=== PATIENT | male | born 1970 | race Caucasian/White ===

== ENCOUNTER 2020-07-11 15:31 | Emergency (ER) | payer BC, SELFPAY ==
--- OUTSIDE RECORDS SUMMARY | 2020-07-11 15:33 | XMS REPORT | Continuity of Care Document ---
:1970 Author Organization [facility] t Address [address] [place] [address] [address]. [address] [place] [address] Care Team Providers Name Role Phone Patrice LEPE Attending Clinician Problems This patient has no known problems. Allergies, Adverse Reactions, Alerts This patient has no known allergies or adverse reactions. Medications This patient has no known medications. Procedures This patient has no known procedures. Encounters Start End Encounter Admission Attending Care Care Encounter Source Date/Time Date/Time Type Type Clinicians Facility Department ID 2020-01-07 2020-01-07 Emergency Patrice [facility] [id number] 13:23:00 15:57:00 Arjun Tang [id number] Susan [id number] [place] [id number] Results This patient has no known results.
--- NOTE | 2020-07-11 16:17 | RAD REPORT ---
EXAM DESCRIPTION: CT - [id number] - 07/11/2020 3:59 pm CLINICAL HISTORY: Trauma, head and neck injury. PAIN COMPARISON: No comparisons TECHNIQUE: Axial 5 mm thick images of the head were obtained. Axial 2 mm thick images of the cervical spine were obtained with sagittal and coronal reconstruction images generated and reviewed. All CT scans are performed using dose optimization technique as appropriate and may include automated exposure control or mA/KV adjustment according to patient size. FINDINGS: CT HEAD WITHOUT CONTRAST: No acute hemorrhage, hydrocephalus or extra-axial collection is identified.No areas of brain edema or midline shift. The paranasal sinuses and mastoids are clear.The calvarium is intact. CT CERVICAL SPINE WITHOUT CONTRAST: No fracture or subluxation.No prevertebral soft tissues swelling is identified. IMPRESSION: No acute intracranial or cervical spine findings.
[2020-07-11] MEDS ORDERED: TETANUS & DIPHTHERIA TOX,ADULT 0.5 ML VIAL ONE (16:48)
[2020-07-11] MEDS ORDERED: DERMABOND SKIN ADHESIVE TOP ONE (17:19)
--- NOTE | 2020-07-11 17:29 | EDPHYS ---
Physician Documentation [facility] Name: Rei Reyna Age: 49 yrs Sex: Male : 1970 Arrival Date: 07/11/2020 Time: 15:32 Bed 25 Private MD: ED Physician Deborah Foss HPI: 07/11 17:53 This 49 yrs old Male presents to ER via Ambulatory with complaints of Head kb Injury Without LOC-Adult, Laceration - ear. 17:53 The patient or guardian reports injury, pain. The complaints affect the right ear and kb right temporal area. Context of injury: The problem was sustained outdoors, at work, resulted from a direct blow, tree limb. Onset: The symptoms/episode began/occurred just prior to arrival. Associated signs and symptoms: Loss of consciousness: This patient did not experience any loss of consciousness. Pertinent positives: dazed, injury. Severity of symptoms: At their worst the symptoms were moderate, in the emergency department the symptoms are unchanged. The patient has not experienced similar symptoms in the past. The patient has not recently seen a physician. 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 the limb was attached to a rope, something happened and the limb swung hitting him on the right side of his head. States he didn't remember everything that happened at first, but it's all coming back to him. Pt is A\T\Ox4 currently. No neuro deficits. Historical: - Allergies: 15:48 No Known Allergies; ca1 - Home Meds: 15:48 None [Active]; ca1 - PMHx: 15:48 None; ca1 - PSHx: 15:48 elbow surgery; ca1 - Immunization history: Last tetanus immunization: < 10 years ago. - Social history:: Smoking status: Patient/guardian denies using tobacco, the patient reports quitting approximately 2 years ago. ROS: 17:13 Constitutional: Negative for fever, chills, and weight loss, Eyes: Negative for injury, kb pain, redness, and discharge, Neck: Negative for injury, pain, and swelling, Cardiovascular: Negative for chest pain, palpitations, and edema, Respiratory: Negative for shortness of breath, cough, wheezing, and pleuritic chest pain, Abdomen/GI: Negative for abdominal pain, nausea, vomiting, diarrhea, and constipation, MS/Extremity: Negative for injury and deformity. 17:13 Skin: Positive for abrasion(s), laceration(s), swelling, of the right ear. 17:14 Skin: Positive for abrasion(s), of the right side of forehead and low back area. kb Exam: 17:14 Constitutional: This is a well developed, well nourished patient who is awake, alert, kb and in no acute distress. Eyes: Pupils equal round and reactive to light, extra-ocular motions intact. Lids and lashes normal. Conjunctiva and sclera are non-icteric and not injected. Cornea within normal limits. Periorbital areas with no swelling, redness, or edema. Neck: Trachea midline, no thyromegaly or masses palpated, and no cervical lymphadenopathy. Supple, full range of motion without nuchal rigidity, or vertebral point tenderness. No Meningismus. Chest/axilla: Normal chest wall appearance and motion. Cardiovascular: Regular rate and rhythm with a normal S1 and S2. No gallops, murmurs, or rubs. No pulse deficits. Respiratory: Respirations even and unlabored. No increased work of breathing, no retractions or nasal flaring. Abdomen/GI: Soft, non-tender. No distention Back: No spinal tenderness. No costovertebral tenderness. Full range of motion. MS/ Extremity: Pulses equal, no cyanosis. Neurovascular intact. Full, normal range of motion. Neuro: Awake and alert, GCS 15, oriented to person, place, time, and situation. Moves all extremities. Normal gait. 17:14 Head/face: Noted is no obvious of injury or deformity except abrasion(s), that are mild, that are moderate, of the right side of forehead and right ear, a laceration(s), that is superficial, 0.5 cm(s), of the pinna of right ear, swelling, that is mild, of the right ear, tenderness, that is moderate, of the right ear. 17:14 Eyes: Pupils: equal, round, and reactive to light and accomodation, Extraocular movements: intact throughout. 17:14 Skin: injury, abrasion(s), moderate sized abrasion noted, of the low back area. Vital Signs: 15:42 BP 145 / 103; Pulse 75; Resp 16 S; Temp 97.3; Pulse Ox 88% on R/A; Weight 99.79 kg (R); ca1 Height 5 ft. 8 in. (172.72 cm) (R); Pain 3/10; 16:49 BP 142 / 91; Pulse 62; Resp 16; Pulse Ox 100% on R/A; mh5 17:34 BP 133 / 88; Pulse 56; Resp 16; Pulse Ox 100% ; mh5 15:42 Body Mass Index 33.45 (99.79 kg, 172.72 cm) ca1 Olive Coma Score: 15:42 Eye Response: spontaneous(4). Verbal Response: oriented(5). Motor Response: obeys ca1 commands(6). Total: 15. 17:12 Eye Response: spontaneous(4). Verbal Response: oriented(5). Motor Response: obeys kb commands(6). Total: 15. 17:53 Eye Response: spontaneous(4). Verbal Response: oriented(5). Motor Response: obeys kb commands(6). Total: 15. Trauma Score (Adult): 15:42 Eye Response: spontaneous(1); Verbal Response: oriented(1); Motor Response: obeys ca1 commands(2); Systolic BP: > 89 mm Hg(4); Respiratory Rate: 10 to 29 per min(4); Olive Score: 15; Trauma Score: 12 MDM: 15:35 Patient medically screened. kb 17:12 Data reviewed: vital signs, nurses notes. Data reviewed: I have discussed the patient's kb presentation/case with the attending Emergency Department Physician;. Data interpreted: Pulse oximetry: on room air is 100 %. Interpretation: normal. Counseling: I had a detailed discussion with the patient and/or guardian regarding: the historical points, exam findings, and any diagnostic results supporting the discharge/admit diagnosis, radiology results, the need for outpatient follow up, a family practitioner, to return to the emergency department if symptoms worsen or persist or if there are any questions or concerns that arise at home. 07/11 15:42 Order name: CT Head C Spine; Complete Time: 16:19 kb 07/11 15:42 Order name: Wound Care; Complete Time: 16:45 kb 07/11 16:55 Order name: Dermabond; Complete Time: 17:02 kb Administered Medications: 16:36 Drug: Tetanus-Diphtheria Toxoid Adult 0.5 ml {Financial Institution President: [employer]. Exp: iw 09/18/2021. Lot #: [id number]. } Route: IM; Site: right deltoid; 17:00 Follow up: Response: No adverse reaction iw Disposition: 07/11/20 17:28 Discharged to Home. Impression: Concussion without loss of consciousness, Laceration without foreign body of right ear, Abrasion of right ear, Abrasion of other part of head, Abrasion of lower back and pelvis. - Condition is Stable. - Discharge Instructions: Laceration Care, Adult, [id number], Abrasion, [id number]-Bgar, Concussion, Adult, Ogsv-ye-Ferz. - Medication Reconciliation Form, Thank You Letter, Antibiotic Education, Prescription Opioid Use form. - Follow up: Private Physician; When: 2 - 3 days; Reason: Recheck today's complaints, Continuance of care, Re-evaluation by your physician. Follow up: Emergency Department; When: As needed; Reason: Worsening of condition. Addendum: 07/12/2020 18:44 Co-signature as Attending Physician, Deborah Foss MD. m a2 Signatures: Dispatcher [employer] EDMatilda Abdalla, ASSEMBLER MOTOR VEHICLE-C ASSEMBLER MOTOR VEHICLE-Ckb Shari Viera, KONSTANTIN RN Deborah Charles MD MD ma2 Radha Daugherty RN RN ca1 Corrections: (The following items were deleted from the chart) 07/11 17:39 17:28 07/11/2020 17:28 Discharged to Home. Impression: Concussion without loss of iw consciousness; Laceration without foreign body of right ear; Abrasion of right ear; Abrasion of other part of head; Abrasion of lower back and pelvis. Condition is Stable. Forms are Medication Reconciliation Form, Thank You Letter, Antibiotic Education, Prescription Opioid Use. Follow up: Private Physician; When: 2 - 3 days; Reason: Recheck today's complaints, Continuance of care, Re-evaluation by your physician. Follow up: Emergency Department; When: As needed; Reason: Worsening of condition. kb
--- NOTE | 2020-07-11 17:29 | ER ---
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 He almost blacked out and was confused and disoriented after. He is bleeding from back of R ear. Care prior to arrival: None. 15:42 Acuity: ULISES 2 ca1 15:42 Method Of Arrival: Ambulatory ca1 15:47 Coronavirus screen: Client denies travel out of the [place] in the last 14 days. At this ca1 time, the client does not indicate any symptoms associated with coronavirus-19. Ebola Screen: Patient negative for fever greater than or equal to 101.5 degrees Fahrenheit, and additional compatible Ebola Virus Disease symptoms Patient denies exposure to infectious person. Patient denies travel to an Ebola-affected area in the 21 days before illness onset. No symptoms or risks identified at this time. Initial Sepsis Screen: Does the patient meet any 2 criteria? No. Patient's initial sepsis screen is negative. Does the patient have a suspected source of infection? No. Patient's initial sepsis screen is negative. Risk Assessment: Do you want to hurt yourself or someone else? Patient reports no desire to harm self or others. Onset of symptoms was July 11, 2020. Triage Assessment: 17:30 General: Appears in no apparent distress. Behavior is calm, cooperative. iw Trauma Activation: Alert Physician: ED Physician; Name: ; Notified At: ; Arrived At: Physician: General Surgeon; Name: ; Notified At: ; Arrived At: Physician: Radiology; Name: ; Notified At: ; Arrived At: Physician: Respiratory; Name: ; Notified At: ; Arrived At: Physician: Lab; Name: ; Notified At: ; Arrived At: Historical: - Allergies: 15:48 No Known Allergies; ca1 - Home Meds: 15:48 None [Active]; ca1 - PMHx: 15:48 None; ca1 - PSHx: 15:48 elbow surgery; ca1 - Immunization history: Last tetanus immunization: < 10 years ago. - Social history:: Smoking status: Patient/guardian denies using tobacco, the patient reports quitting approximately 2 years ago. Screenin:38 Abuse screen: Denies threats or abuse. Denies injuries from another. Nutritional iw screening: No deficits noted. Tuberculosis screening: No symptoms or risk factors identified. Fall Risk None identified. Primary Survey: 15:42 NO uncontrolled hemorrhage observed. A: The patient is alert. Airway: patent. ca1 Breathing/Chest: Respiratory pattern: regular, Respiratory effort: spontaneous, unlabored, Breath sounds: clear, bilaterally. Chest inspection: symmetrical rise and fall of the chest. Circulation: Heart tones present. Pulses: palpable bilateral radial, brachial, femoral, popliteal, posterior tibial and and dorsalis pedis arteries.. Skin color: pink, Skin temperature: warm, dry. Disability Alert. Exposure/Environment: All clothing and personal items were removed. Forensic evidence collection is not deemed to be indicated at this time. Items placed in patient belonging bag. There is no evidence of uncontrolled external bleeding. Obvious injury(ies) are noted at this time: laceration at the back of R ear. Assessment: 16:00 General: Appears in no apparent distress. Behavior is calm, cooperative. Pain: iw Complains of pain in face and low back area and right side of forehead and right ear. Neuro: Level of Consciousness is awake, alert, obeys commands, Oriented to person, place, time, situation, Moves all extremities. Full function. Cardiovascular: Patient's skin is warm and dry. Respiratory: Respiratory effort is even, unlabored, Respiratory pattern is regular, symmetrical. Derm: Musculoskeletal: Range of motion: intact in all extremities. 17:30 Reassessment: Patient appears in no apparent distress at this time. Patient and/or iw family updated on plan of care and expected duration. Pain level reassessed. Patient is alert, oriented x 3, equal unlabored respirations, skin warm/dry/pink. Vital Signs: 15:42 BP 145 / 103; Pulse 75; Resp 16 S; Temp 97.3; Pulse Ox 88% on R/A; Weight 99.79 kg (R); ca1 Height 5 ft. 8 in. (172.72 cm) (R); Pain 3/10; 16:49 BP 142 / 91; Pulse 62; Resp 16; Pulse Ox 100% on R/A; mh5 17:34 BP 133 / 88; Pulse 56; Resp 16; Pulse Ox 100% ; mh5 15:42 Body Mass Index 33.45 (99.79 kg, 172.72 cm) ca1 Olive Coma Score: 15:42 Eye Response: spontaneous(4). Verbal Response: oriented(5). Motor Response: obeys ca1 commands(6). Total: 15. 17:12 Eye Response: spontaneous(4). Verbal Response: oriented(5). Motor Response: obeys kb commands(6). Total: 15. 17:53 Eye Response: spontaneous(4). Verbal Response: oriented(5). Motor Response: obeys kb commands(6). Total: 15. Trauma Score (Adult): 15:42 Eye Response: spontaneous(1); Verbal Response: oriented(1); Motor Response: obeys ca1 commands(2); Systolic BP: > 89 mm Hg(4); Respiratory Rate: 10 to 29 per min(4); Olive Score: 15; Trauma Score: 12 ED Course: 15:32 Patient arrived in ED. as 15:35 Matilda Herrera FNP-C is PHCP. kb 15:35 Deborah Foss MD is Attending Physician. kb 15:42 Patient maintains SpO2 saturation greater than 95% on room air. ca1 15:45 Triage completed. ca1 15:48 Arm band placed on right wrist. ca1 15:48 Patient has correct armband on for positive identification. Bed in low position. Call [facility] light in reach. 15:59 CT Head C Spine In Process Unspecified. EDMS 16:02 Shari Viera, RN is Primary Nurse. iw 16:45 Wound care: to abrasion, located on right ear was cleaned with Hibiclens, soaked in mh5 normal saline solution. 17:38 No provider procedures requiring assistance completed. Patient did not have IV access iw during this emergency room visit. Administered Medications: 16:36 Drug: Tetanus-Diphtheria Toxoid Adult 0.5 ml {Tree Cutter: [employer]. Exp: iw 09/18/2021. Lot #: [id number]. } Route: IM; Site: right deltoid; 17:00 Follow up: Response: No adverse reaction iw Outcome: 17:28 Discharge ordered by . armond 17:38 Discharged to home ambulatory. iw 17:38 Condition: good 17:38 Discharge instructions given to patient, Instructed on discharge instructions, follow up and referral plans. Demonstrated understanding of instructions, follow-up care. 17:39 Patient left the ED. iw Signatures: Dispatcher [employer] EDMatilda Abdalla, ROBERTH-C ROBERTH-Shanika Henley Irene, RN RN Kate Don [facility] Radha Daugherty RN RN ca1
[2020-07-11 18:24] VITALS: BP 145/103; TEMP 97.3; O2SAT 88
== END 2020-07-11 17:39 | disposition home or self-care (01) ==
LOC: ER 15:31
DX: S06.0X0A Concussion without loss of consciousness, initial encounter (principal); S00.411A Abrasion of right ear, initial encounter; S00.81XA Abrasion of other part of head, initial encounter; S30.810A Abrasion of lower back and pelvis, initial encounter; W22.8XXA Striking against or struck by other objects, initial encounter; Y93.89 Activity, other specified; Y92.89 Other specified places as the place of occurrence of the external cause; Y99.8 Other external cause status; Z23 Encounter for immunization
CPT/HCPCS: 70450; 72125; 90471; 90714; 99284; G0390